=== PATIENT | female | born 1955 | race African-American/Black ===

== ENCOUNTER 2017-02-12 16:05 | Emergency (ER) | payer SELFPAY ==
[2017-02-12] MEDS ORDERED: Ketorolac 60 MG/2 ML SDV IM ONE (16:46)
--- NOTE | 2017-02-12 16:46 | EDM.PDOC ---
ED HPI GENERAL MEDICAL PROBLEM - General Chief Complaint: Lower Extremity Injury/Pain Stated Complaint: PT HURT RT FT Time Seen by Provider: 02/12/17 16:34 - History of Present Illness INITIAL COMMENTS - FREE TEXT/NARRATIVE: HISTORY AND PHYSICAL: History of present illness: The patient is a 61-year-old female with a history of hypertension and has no local provider and presents with complaints of pain to her right ankle that started about 1 week ago when she was getting out of bed and it got stuck between 2 different bed area she states that she did not fall to the ground or injure anything else and has had persistent pain to the lateral right ankle. She has been ambulating on it with a limp and she says now she also has some lower back pain. She did not fall and hit her back. She has no flank pain abdominal pain chest pain or shortness of breath and no head or neck pain. She has no proximal leg knee thigh or hip pain on the right. She has not been elevating or using ice and she has actually been using heat to the area. Review of systems: As per history of present illness and below otherwise all systems reviewed and negative. Past medical history: As per history of present illness and as reviewed below otherwise noncontributory. Surgical history: As per history of present illness and as reviewed below otherwise noncontributory. Social history: No reported history of drug or alcohol abuse. Family history: As per history of present illness and as reviewed below otherwise noncontributory. Physical exam: Gen.: Well-developed overweight female who is nontoxic and speaking clearly. Vital signs of the note by me. HEENT: Atraumatic, normocephalic, negative for conjunctival pallor or scleral icterus, mucous membranes moist, throat clear, neck supple, nontender, trachea midline. Lungs: Clear to auscultation, breath sounds equal bilaterally, chest nontender. Heart: S1S2, regular rate and rhythm no overt murmurs Abdomen: Soft, nondistended, nontender. NABS Negative for costovertebral tenderness. Pelvis: Stable nontender. Back: There are no midline step-offs tenderness defects the thoracic or lumbar spine no posterior pelvis pain. The patient indicates the entire lower lumbar area as the area of pain but there is no soft tissue injury swelling or one focal area of tenderness on palpation. Genitourinary: Deferred. Rectal: Deferred. Extremities: Atraumatic, negative for cords or calf pain. Neurovascular unremarkable. Neuro: Awake, alert, oriented. Cranial nerves II through XII unremarkable. Cerebellum unremarkable. Motor and sensory unremarkable throughout. Exam nonfocal. Diagnostics: X-ray right ankle Lumbar spine x-ray Therapeutics: Toradol Aircast Clint crutches Impression: Right ankle injury/sprain subacute, lumbar back pain Definitive disposition and diagnosis as appropriate pending reevaluation and review of above. Treatments AGENT PRODUCER: Reports: Other (see below) Other Treatments AGENT PRODUCER: Crepe Bandage right foot Pain Score (Numeric/FACES): 5 - Related Data Allergies Allergy/AdvReac Type Severity Reaction Status Date / Time No Known Allergies Allergy Verified 02/12/17 16:31 Home Meds: Home Meds Aspirin 1 tab PO DAILY 02/12/17 [History] amLODIPine [Norvasc] 10 mg PO BEDTIME 02/12/17 [History] Review of Systems - Review of Systems Review Of Systems: ROS reveals no pertinent complaints other than HPI. ED EXAM, GENERAL - Physical Exam Exam: See Below (See dictation) Course - Vital Signs Last Recorded V/S: Last Vital Signs Temp 36.6 C 02/12/17 16:32 Pulse 90 02/12/17 16:32 Resp 18 02/12/17 16:32 BP 174/88 H 02/12/17 16:32 Pulse Ox 98 02/12/17 16:32 - Orders/Labs/Meds Orders: Active Orders 24 hr Category Date Time Status Ankle Min 3V Rt [CR] Stat Exams 02/12/17 16:46 Taken Lumbar Spine 2 or 3V [CR] Stat Exams 02/12/17 16:49 Taken DME for Discharge [COMM] Stat Oth 02/12/17 18:03 Ordered Meds: Medications Discontinued Medications Generic Name Dose Route Start Last Admin Trade Name Freq PRN Reason Stop Dose Admin Ketorolac Tromethamine 60 mg 02/12/17 16:46 02/12/17 17:04 Toradol IM 02/12/17 16:47 60 mg ONETIME ONE Administration Departure - Departure Time of Disposition: 18:04 Disposition: Home, Self-Care 01 Condition: Good Clinical Impression: Ankle sprain Qualifiers: Encounter type: initial encounter Involved ligament of ankle: unspecified ligament Laterality: right Qualified Code(s): S93.401A - Sprain of unspecified ligament of right ankle, initial encounter - Discharge Information Referrals: PCP,None [Primary Care Provider] - Forms: ED Department Discharge Additional Instructions: The following information is given to patients seen in the emergency department who are being discharged to home. This information is to outline your options for follow-up care. We provide all patients seen in our emergency department with a follow-up referral. The need for follow-up, as well as the timing and circumstances, are variable depending upon the specifics of your emergency department visit. If you don't have a primary care physician on staff, we will provide you with a referral. We always advise you to contact your personal physician following an emergency department visit to inform them of the circumstance of the visit and for follow-up with them and/or the need for any referrals to a consulting specialist. The emergency department will also refer you to a specialist when appropriate. This referral assures that you have the opportunity for followup care with a specialist. All of these measure are taken in an effort to provide you with optimal care, which includes your followup. Under all circumstances we always encourage you to contact your private physician who remains a resource for coordinating your care. When calling for followup care, please make the office aware that this follow-up is from your recent emergency room visit. If for any reason you are refused follow-up, please contact the [facility] emergency department at and ask to speak to the emergency department charge nurse. [facility] Specialty Care--Orthopedic clinic Professional Building [address] [place] [address] [id number] [facility] Primary care- Internal Medicine and Family [place] [id number] [place] [phone] Ice and elevate as much as possible and use the Aircast and Clint wrap been given and the crutches for the next 5 days. Use medications as prescribed and needed. Please call and follow-up in primary care for basic medical reevaluation and our orthopedic clinic this week for further care of the ankle. Return to ER as needed and as discussed - My Orders Last 24 Hours: My Active Orders 02/12/17 16:46 Ankle Min 3V Rt [CR] Stat 02/12/17 16:49 Lumbar Spine 2 or 3V [CR] Stat 02/12/17 18:03 DME for Discharge [COMM] Stat - Assessment/Plan Last 24 Hours: My Active Orders 02/12/17 16:46 Ankle Min 3V Rt [CR] Stat 02/12/17 16:49 Lumbar Spine 2 or 3V [CR] Stat 02/12/17 18:03 DME for Discharge [COMM] Stat
[2017-02-12 19:24] VITALS: BP 138/77
--- NOTE | 2017-02-14 10:47 | CR ---
EXAM DATE: 02/12/17 PATIENT'S AGE: 61 Patient: MARLA RUDD Facility: [place], [place] Site . Site : 1955 Study: XRay Spine Lumbar [id number]/7/2017 5:37:00 PM Ordering Physician: Jeb Crouch Final Report: INDICATION: Pain. Technique: Three upright views of the lumbar spine. Findings: Five lumbar type vertebral bodies. Vertebral bodies are normal in height and alignment. Pedicles, transverse processes, and spinous processes are intact. Disc spaces are maintained. Small anterior osteophytes L3 and L4. Impression: 1. No acute abnormality. 2. Small anterior osteophytes L3 and L4. Dictated by Lito Cragi MD @ Feb 12 2017 5:44PM (Electronic Signature) Report Signed by Proxy. STEVAN
--- NOTE | 2017-02-14 10:48 | CR ---
EXAM DATE: 02/12/17 PATIENT'S AGE: 61 Patient: MARLA RUDD Facility: [place], [place] Site . Site : 1955 Study: XRay Extremity Right ankle [id number]/7/2017 5:37:26 PM Ordering Physician: Jeb Crouch Final Report: INDICATION: Pain. Technique: Three views of the right ankle. Findings: No acute fracture or dislocation. The mortise is uniform. Soft tissue swelling about the lateral malleolus. Plantar calcaneal spur and calcification at the Achilles tendon insertion site. Impression: 1. No acute bony abnormality. 2. Lateral soft tissue swelling. Dictated by Lito Craig MD @ Feb 12 2017 5:45PM (Electronic Signature) Report Signed by Proxy. STEVAN
== END 2017-02-12 18:13 | disposition home or self-care (01) ==
LOC: MW.ED 16:05
DX: S93.401A Sprain of unspecified ligament of right ankle, initial encounter (principal); Z79.82 Long term (current) use of aspirin; X58.XXXA Exposure to other specified factors, initial encounter
CPT/HCPCS: 72100; 73610; 96372; 99283; J1885

== ENCOUNTER 2017-04-18 16:15 | Emergency (ER) | payer SELFPAY ==
[2017-04-18 16:42] VITALS: BP 143/76
[2017-04-18] MEDS ORDERED: traMADol 50 MG Tab PO ONE (17:18)
--- NOTE | 2017-04-18 17:24 | EDM.PDOC ---
ED HPI GENERAL MEDICAL PROBLEM - General Chief Complaint: Upper Extremity Injury/Pain Stated Complaint: PAIN LT SHOULDER Time Seen by Provider: 04/18/17 17:15 Source of Information: Reports: Patient History Limitations: Reports: No Limitations - History of Present Illness INITIAL COMMENTS - FREE TEXT/NARRATIVE: History of present illness: []She has chronic left shoulder joint pain. She had the same pain in February and was seen in the emergency room at that time. She had an x-ray that was negative and states that she has had no new trauma and it is the same pain. Review of systems: As per history of present illness and below otherwise all systems reviewed and negative. Past medical history: As per history of present illness and as reviewed below otherwise noncontributory. Surgical history: As per history of present illness and as reviewed below otherwise noncontributory. Social history: No reported history of drug or alcohol abuse. Family history: As per history of present illness and as reviewed below otherwise noncontributory. Physical exam: General: Well developed, well nourished in NAD HEENT: Atraumatic, normocephalic, pupils reactive, negative for conjunctival pallor or scleral icterus, mucous membranes moist, throat clear, neck supple, nontender, trachea midline. Lungs: Clear to auscultation, breath sounds equal bilaterally, chest nontender. Heart: S1S2, regular, negative for clicks, rubs, or JVD. Abdomen: Soft, nondistended, nontender. Negative for masses or hepatosplenomegaly. Negative for costovertebral tenderness. Pelvis: Stable nontender. Genitourinary: Deferred. Rectal: Deferred. Extremities: Atraumatic, negative for cords or calf pain. Neurovascular unremarkable. Neuro: Awake, alert, oriented. Cranial nerves II through XII unremarkable. Cerebellum unremarkable. Motor and sensory unremarkable throughout. Exam nonfocal. Diagnostics: [] Therapeutics: []Arm sling, tramadol Impression: []Left shoulder pain Plan: []Tramadol, ibuprofen, where arm sling for comfort, ice shoulder 20 minutes at a time follow-up with Definitive disposition and diagnosis as appropriate pending reevaluation and review of above. right shoulder Pain Score (Numeric/FACES): 9 - Related Data Allergies Allergy/AdvReac Type Severity Reaction Status Date / Time No Known Allergies Allergy Verified 04/18/17 16:39 Home Meds: Home Meds Aspirin 1 tab PO DAILY 02/12/17 [History] amLODIPine [Norvasc] 10 mg PO BEDTIME 02/12/17 [History] traMADol [Ultram] 50 mg PO Q8H PRN #16 tablet 04/18/17 [Rx] Past Medical History - Past Health History Medical/Surgical History: Denies Medical/Surgical History HEENT History: Reports: None Cardiovascular History: Reports: Hypertension Respiratory History: Reports: None Gastrointestinal History: Reports: None Genitourinary History: Reports: None 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: Musculoskeletal History: Reports: None Neurological History: Reports: None Endocrine/Metabolic History: Reports: None Hematologic History: Reports: None Immunologic History: Reports: None Oncologic (Cancer) History: Reports: None Dermatologic History: Reports: None - Infectious Disease History Infectious Disease History: Reports: None Social & Family History - Family History Family Medical History: Noncontributory - Tobacco Use Smoking Status *Q: Never Smoker - Caffeine Use Caffeine Use: Reports: Coffee - Recreational Drug Use Recreational Drug Use: No Review of Systems - Review of Systems Review Of Systems: See Below (See history of present illness) ED EXAM, GENERAL - Physical Exam Exam: See Below (See history of present illness) Course - Vital Signs Last Recorded V/S: Last Vital Signs Temp 97 F 04/18/17 16:30 Pulse 72 04/18/17 16:30 Resp 18 04/18/17 16:30 BP 143/76 H 04/18/17 16:30 Pulse Ox 99 04/18/17 16:30 - Orders/Labs/Meds Orders: Active Orders 24 hr Category Date Time Status Communication Order [RC] STAT Care 04/18/17 17:18 Active Meds: Medications Discontinued Medications Generic Name Dose Route Start Last Admin Trade Name Freq PRN Reason Stop Dose Admin Tramadol HCl 50 mg 04/18/17 17:18 Ultram PO 04/18/17 17:19 ONETIME ONE Departure - Departure Time of Disposition: 17:25 Disposition: Home, Self-Care 01 Condition: Good Clinical Impression: Chronic right shoulder pain - Discharge Information Prescriptions: traMADol [Ultram] 50 mg PO Q8H PRN #16 tablet PRN Reason: Pain Referrals: PCP,None [Primary Care Provider] - Forms: ED Department Discharge Additional Instructions: The following information is given to patients seen in the emergency department who are being discharged to home. This information is to outline your options for follow-up care. We provide all patients seen in our emergency department with a follow-up referral. The need for follow-up, as well as the timing and circumstances, are variable depending upon the specifics of your emergency department visit. If you don't have a primary care physician on staff, we will provide you with a referral. We always advise you to contact your personal physician following an emergency department visit to inform them of the circumstance of the visit and for follow-up with them and/or the need for any referrals to a consulting specialist. The emergency department will also refer you to a specialist when appropriate. This referral assures that you have the opportunity for follow-up care with a specialist. All of these measure are taken in an effort to provide you with optimal care, which includes your follow-up. Under all circumstances we always encourage you to contact your private physician who remains a resource for coordinating your care. When calling for follow-up care, please make the office aware that this follow-up is from your recent emergency room visit. If for any reason you are refused follow-up, please contact the [facility] Emergency Department at and asked to speak to the emergency department charge nurse. Ice shoulder 20 minutes this time, Motrin and tramadol for pain follow-up with your primary care physician. Call for an appointment [facility] [address] [place] [id number] - My Orders Last 24 Hours: My Active Orders 04/18/17 17:18 Communication Order [RC] STAT - Assessment/Plan Last 24 Hours: My Active Orders 04/18/17 17:18 Communication Order [RC] STAT
== END 2017-04-18 17:49 | disposition home or self-care (01) ==
LOC: MW.ED 16:15
DX: M25.512 Pain in left shoulder (principal); G89.29 Other chronic pain; I10 Essential (primary) hypertension
CPT/HCPCS: 99282; A9270; 99283

== ENCOUNTER 2017-12-19 15:13 | Emergency (ER) | payer OTHER ==
[2017-12-19 15:59] VITALS: BP 156/90
--- NOTE | 2017-12-19 16:27 | EDM.PDOC ---
ED HPI GENERAL MEDICAL PROBLEM - General Chief Complaint: Eye Problems Stated Complaint: HBP Time Seen by Provider: 12/19/17 16:24 Source of Information: Reports: Patient - History of Present Illness INITIAL COMMENTS - FREE TEXT/NARRATIVE: HISTORY AND PHYSICAL: History of present illness: []Patient presents with injected sclera light sensitivity she has been taking some drops for eyes neomycin polymyxin B she had from previous as she has had some exudate in her lashes on awakening She has a histor hypertension she is out of her medication Otherwise no other complaints no fever nausea vomiting diarrhea constipation chest pain shortness breath headache dizziness palpitation no bowel or urine symptoms Review of systems: As per history of present illness and below otherwise all systems reviewed and negative. Past medical history: As per history of present illness and as reviewed below otherwise noncontributory. Surgical history: As per history of present illness and as reviewed below otherwise noncontributory. Social history: No reported history of drug or alcohol abuse. Family history: As per history of present illness and as reviewed below otherwise noncontributory. Physical exam: HEENT: Atraumatic, normocephalic, pupils reactive, negative for conjunctival pallor or scleral icterus, mucous membranes moist, throat clear, neck supple, nontender, trachea midline. Lungs: Clear to auscultation, breath sounds equal bilaterally, chest nontender. Heart: S1S2, regular, negative for clicks, rubs, or JVD. Abdomen: Soft, nondistended, nontender. Negative for masses or hepatosplenomegaly. Negative for costovertebral tenderness. Pelvis: Stable nontender. Genitourinary: Deferred. Rectal: Deferred. Extremities: Atraumatic, negative for cords or calf pain. Neurovascular unremarkable. Neuro: Awake, alert, oriented. Cranial nerves II through XII unremarkable. Cerebellum unremarkable. Motor and sensory unremarkable throughout. Exam nonfocal. Diagnostics: [Clinical ] Therapeutics: [ in 2 Drops as directed Amlodipine 10 mg by mouth daily #30 no refill Establish primary Recommend ophthalmology exam ] Impression: [ hypertension Conjunctivitis ] Definitive disposition and diagnosis as appropriate pending reevaluation and review of above. both eyes Pain Score (Numeric/FACES): 7 - Related Data Allergies Allergy/AdvReac Type Severity Reaction Status Date / Time No Known Allergies Allergy Verified 12/19/17 15:42 Home Meds: Home Meds amLODIPine [Norvasc] 10 mg PO BEDTIME 02/12/17 [History] Vasquez/Polymyx B Sulf/Dexameth [Maxitrol Eye Drops] 1 drop EYEBOTH ASDIRECTED PRN 12/19/17 [History] Past Medical History - Past Health History Medical/Surgical History: Denies Medical/Surgical History HEENT History: Reports: None Cardiovascular History: Reports: Hypertension Respiratory History: Reports: None Gastrointestinal History: Reports: None Genitourinary History: Reports: None 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: Musculoskeletal History: Reports: None Neurological History: Reports: None Psychiatric History: Reports: None Endocrine/Metabolic History: Reports: None Hematologic History: Reports: None Immunologic History: Reports: None Oncologic (Cancer) History: Reports: None Dermatologic History: Reports: None - Infectious Disease History Infectious Disease History: Reports: None - Past Surgical History Head Surgeries/Procedures: Reports: None HEENT Surgical History: Reports: None Cardiovascular Surgical History: Reports: None Respiratory Surgical History: Reports: None GI Surgical History: Reports: None Female Surgical History: Reports: None Oncologic Surgical History: Reports: None Social & Family History - Family History Family Medical History: Noncontributory - Tobacco Use Smoking Status *Q: Never Smoker Second Hand Smoke Exposure: No - Caffeine Use Caffeine Use: Reports: None - Recreational Drug Use Recreational Drug Use: No ED ROS GENERAL - Review of Systems Review Of Systems: See Below ED EXAM GENERAL W FULL EYE - Physical Exam Exam: See Below Course - Vital Signs Last Recorded V/S: Last Vital Signs Temp 98.6 F 12/19/17 15:45 Pulse 90 12/19/17 15:45 Resp 16 12/19/17 15:45 BP 156/90 H 12/19/17 15:59 Pulse Ox 98 12/19/17 15:45 Departure - Departure Time of Disposition: 16:26 Disposition: Home, Self-Care 01 Condition: Good Clinical Impression: Conjunctivitis, Hypertension - Discharge Information Referrals: PCP,None [Primary Care Provider] - Additional Instructions: Medication as prescribed Return if symptoms persist or worsen Follow-up and establish primary care physician Recommend ophthalmology examination call phone number below to schedule appropriate follow-up with ophthalmology [address] [id number] The following information is given to patients seen in the emergency department who are being discharged to home. This information is to outline your options for follow-up care. We provide all patients seen in our emergency department with a follow-up referral. The need for follow-up, as well as the timing and circumstances, are variable depending upon the specifics of your emergency department visit. If you don't have a primary care physician on staff, we will provide you with a referral. We always advise you to contact your personal physician following an emergency department visit to inform them of the circumstance of the visit and for follow-up with them and/or the need for any referrals to a consulting specialist. The emergency department will also refer you to a specialist when appropriate. This referral assures that you have the opportunity for follow-up care with a specialist. All of these measure are taken in an effort to provide you with optimal care, which includes your follow-up. Under all circumstances we always encourage you to contact your private physician who remains a resource for coordinating your care. When calling for follow-up care, please make the office aware that this follow-up is from your recent emergency room visit. If for any reason you are refused follow-up, please contact the [facility] emergency department at and asked to speak to the emergency department charge nurse.
== END 2017-12-19 17:00 | disposition home or self-care (01) ==
LOC: MW.ED 15:13
DX: I10 Essential (primary) hypertension (principal); H10.9 Unspecified conjunctivitis
CPT/HCPCS: 99283

== ENCOUNTER 2018-11-27 13:10 | Emergency (ER) | payer SELFPAY ==
--- NOTE | 2018-11-27 13:37 | EDM.PDOC ---
ED HPI GENERAL MEDICAL PROBLEM - General Chief Complaint: General Stated Complaint: SICK Time Seen by Provider: 11/27/18 13:30 - History of Present Illness INITIAL COMMENTS - FREE TEXT/NARRATIVE: HISTORY AND PHYSICAL: History of present illness: Patient's a 63-year-old Afro-[place]ib[place]ian female history of hypertension and non- insulin-dependent diabetes who presents with a concern of medical screening exam she has had some revision nonspecific symptoms in the form of having felt chilled and is here with her son without primary care locally for medical screening evaluation and clinic referral. No reported chest pain shortness of breath nausea vomiting fever Review of systems: As per history of present illness and below otherwise all systems reviewed and negative. Past medical history: As per history of present illness and as reviewed below otherwise noncontributory. Surgical history: As per history of present illness and as reviewed below otherwise noncontributory. Social history: No reported history of drug or alcohol abuse. Family history: As per history of present illness and as reviewed below otherwise noncontributory. Physical exam: HEENT: Atraumatic, normocephalic, pupils reactive, negative for conjunctival pallor or scleral icterus, mucous membranes moist, throat clear, neck supple, nontender, trachea midline. Lungs: Clear to auscultation, breath sounds equal bilaterally, chest nontender. Heart: S1S2, regular, negative for clicks, rubs, or JVD. Abdomen: Soft, nondistended, nontender. Negative for masses or hepatosplenomegaly. Negative for costovertebral tenderness. Pelvis: Stable nontender. Genitourinary: Deferred. Rectal: Deferred. Extremities: Atraumatic, negative for cords or calf pain. Neurovascular unremarkable. Neuro: Awake, alert, oriented. Cranial nerves II through XII unremarkable. Cerebellum unremarkable. Motor and sensory unremarkable throughout. Exam nonfocal. Diagnostics: CBC CMP UA chest x-ray EKG Therapeutics: None Impression: #1 medical screening exam #2 history of diabetes #3 history of hypertension Definitive disposition and diagnosis as appropriate pending reevaluation and review of above. Generalized Pain Score (Numeric/FACES): 9 - Related Data Allergies Allergy/AdvReac Type Severity Reaction Status Date / Time No Known Allergies Allergy Verified 11/27/18 13:34 Home Meds: Home Meds amLODIPine [Norvasc] 10 mg PO BEDTIME 02/12/17 [History] Vasquez/Polymyx B Sulf/Dexameth [Maxitrol Eye Drops] 1 drop EYEBOTH ASDIRECTED PRN 12/19/17 [History] Aspirin [Ecotrin EC] mg PO ASDIRECTED 11/27/18 [History] Past Medical History - Past Health History Medical/Surgical History: Denies Medical/Surgical History HEENT History: Reports: None Cardiovascular History: Reports: Hypertension Respiratory History: Reports: None Gastrointestinal History: Reports: None Genitourinary History: Reports: None 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: Musculoskeletal History: Reports: None Neurological History: Reports: None Psychiatric History: Reports: None Endocrine/Metabolic History: Reports: None Hematologic History: Reports: None Immunologic History: Reports: None Oncologic (Cancer) History: Reports: None Dermatologic History: Reports: None - Infectious Disease History Infectious Disease History: Reports: None - Past Surgical History Head Surgeries/Procedures: Reports: None HEENT Surgical History: Reports: None Cardiovascular Surgical History: Reports: None Respiratory Surgical History: Reports: None GI Surgical History: Reports: None Female Surgical History: Reports: None Oncologic Surgical History: Reports: None Social & Family History - Family History Family Medical History: Noncontributory - Caffeine Use Caffeine Use: Reports: None ED ROS GENERAL - Review of Systems Review Of Systems: ROS reveals no pertinent complaints other than HPI. ED EXAM, GENERAL - Physical Exam Exam: See Below (See dictation) Course - Vital Signs Last Recorded V/S: Last Vital Signs Temp 35.9 C 11/27/18 13:30 Pulse 82 11/27/18 13:30 Resp 16 11/27/18 13:30 BP 177/75 H 11/27/18 13:30 Pulse Ox 99 11/27/18 13:30 - Orders/Labs/Meds Orders: Active Orders 24 hr Category Date Time Status EKG Documentation Completion [RC] STAT Care 11/27/18 13:33 Active UA RFX MOISES AND CULT IF INDIC [URIN] Stat Lab 11/27/18 13:34 Ordered Labs: Laboratory Tests 11/27/18 11/27/18 Range/Units 14:24 14:24 WBC 7.39 (4.0-11.0) K/uL RBC 4.91 (4.30-5.90) M/uL Hgb 13.4 (12.0-16.0) g/dL Hct 40.0 (36.0-46.0) % MCV 81.5 (80.0-98.0) fL MCH 27.3 (27.0-32.0) pg MCHC 33.5 (31.0-37.0) g/dL RDW Std Deviation 40.2 (28.0-62.0) fl RDW Coeff of Maria Ines 14 (11.0-15.0) % Plt Count 225 (150-400) K/uL MPV 9.70 (7.40-12.00) fL Neut % (Auto) 60.3 (48.0-80.0) % Lymph % (Auto) 32.6 (16.0-40.0) % [place] % (Auto) 6.8 (0.0-15.0) % Eos % (Auto) 0.0 (0.0-7.0) % Baso % (Auto) 0.3 (0.0-1.5) % Neut # (Auto) 4.5 (1.4-5.7) K/uL Lymph # (Auto) 2.4 (0.6-2.4) K/uL [place] # (Auto) 0.5 (0.0-0.8) K/uL Eos # (Auto) 0.0 (0.0-0.7) K/uL Baso # (Auto) 0.0 (0.0-0.1) K/uL Nucleated RBC % 0.0 /100WBC Nucleated RBCs # 0 K/uL Sodium 138 (136-145) mmol/L Potassium 3.1 L (3.5-5.1) mmol/L Chloride 100 (98-107) mmol/L Carbon Dioxide 28.3 (21.0-32.0) mmol/L BUN 23 H (7.0-18.0) mg/dL Creatinine 0.9 (0.6-1.0) mg/dL Est Cr Clr Drug Dosing 63.83 mL/min Estimated GFR (MDRD) > 60.0 ml/min Glucose 372 H (74-106) mg/dL Calcium 9.0 (8.5-10.1) mg/dL Total Bilirubin 0.4 (0.2-1.0) mg/dL AST 14 L (15-37) IU/L ALT 25 (14-63) IU/L Alkaline Phosphatase 61 (46-116) U/L Total Protein 8.0 (6.4-8.2) g/dL Albumin 3.7 (3.4-5.0) g/dL Globulin 4.3 H (2.6-4.0) g/dL Albumin/Globulin Ratio 0.9 (0.9-1.6) Departure - Departure Time of Disposition: 14:57 Disposition: Home, Self-Care 01 Condition: Good Clinical Impression: Encounter for medical screening examination, Diabetes, History of hypertension - Discharge Information Referrals: PCP,Unknown [Primary Care Provider] - Forms: ED Department Discharge Additional Instructions: The following information is given to patients seen in the emergency department who are being discharged to home. This information is to outline your options for follow-up care. We provide all patients seen in our emergency department with a follow-up referral. The need for follow-up, as well as the timing and circumstances, are variable depending upon the specifics of your emergency department visit. If you don't have a primary care physician on staff, we will provide you with a referral. We always advise you to contact your personal physician following an emergency department visit to inform them of the circumstance of the visit and for follow-up with them and/or the need for any referrals to a consulting specialist. The emergency department will also refer you to a specialist when appropriate. This referral assures that you have the opportunity for followup care with a specialist. All of these measure are taken in an effort to provide you with optimal care, which includes your followup. Under all circumstances we always encourage you to contact your private physician who remains a resource for coordinating your care. When calling for followup care, please make the office aware that this follow-up is from your recent emergency room visit. If for any reason you are refused follow-up, please contact the [facility] emergency department at and asked to speak to the emergency department charge nurse. [facility] [address] [place] [id number] Follow-up primary care call to schedule appointment continue current medications and return as needed as discussed - My Orders Last 24 Hours: My Active Orders 11/27/18 13:33 EKG Documentation Completion [RC] STAT 11/27/18 13:34 UA RFX MOISES AND CULT IF INDIC [URIN] Stat - Assessment/Plan Last 24 Hours: My Active Orders 11/27/18 13:33 EKG Documentation Completion [RC] STAT 11/27/18 13:34 UA RFX MOISES AND CULT IF INDIC [URIN] Stat
--- NOTE | 2018-11-27 14:37 | CR ---
EXAMINATION: Portable chest radiograph. HISTORY: Shortness of breath. FINDINGS: The trachea is midline. The cardiomediastinal silhouette is within normal limits. No pulmonary infiltrates, effusions or pneumothorax. Osseous structures appear unremarkable. IMPRESSION: No acute cardiopulmonary process.
[2018-11-27 14:49] LABS: CHLORIDE,CL 100 mmol/L (98-107); SODIUM,NA 138 mmol/L (136-145)
[2018-11-27 19:47] VITALS: BP 159/82
== END 2018-11-27 15:26 | disposition home or self-care (01) ==
LOC: MW.ED 13:10
DX: E11.9 Type 2 diabetes mellitus without complications (principal); I10 Essential (primary) hypertension; Z79.82 Long term (current) use of aspirin
CPT/HCPCS: 36415; 71045; 71045-26; 80053; 81003; 85025; 93005; 99284-25

== ENCOUNTER 2019-08-03 16:42 | Emergency (ER) | payer SELFPAY ==
[2019-08-03] MEDS ORDERED: Tetracaine HCl/PF 0.5% 4 ML Bottle EYEBOTH ONE (18:14)
--- NOTE | 2019-08-03 18:20 | EDM.PDOC ---
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 Patient states that she has had this issue in the past but has never had this evaluated by an eye doctor but was in the ED for this prior with improvement of symptoms and her symptoms today are similar to when she was in the ED in the past. Patient states starting 2 days ago she had some eye pain, redness, crusting and photophobia. Patient denies any associated symptoms with this and denies any visual changes. Patient states she does have blurry vision at her baseline which is unchanged which she has not had evaluated. Patient denies any other symptoms or concerns. Patient has a history of uncontrolled hypertension and diabetes. Does not wear contacts or glasses. Patient denies fever, chills, chest pain, shortness of breath, or cough. Denies headache, neck stiff ness, change in vision, syncope, or near syncope. Denies nausea, vomiting, abdominal pain, diarrhea, constipation, or dysuria. Has not noted any blood in urine or stool. Patient has been eating and drinking appropriately. Review of systems: As per history of present illness and below otherwise all systems reviewed and negative. Past medical history: As per history of present illness and as reviewed below otherwise noncontributory. Surgical history: As per history of present illness and as reviewed below otherwise noncontributory. Social history: See social history for further information Family history: As per history of present illness and as reviewed below otherwise noncontributory. Physical exam: General: Patient is alert, oriented, and in no acute distress. Patient sitting comfortably on exam table. HEENT: Visual acuity intact but vision decreased. Tonopen pressure of right eye 18. Tonopen pressure of left eye 17. Mild injection of sclera bilaterally. EOMS intact without pain or difficulty. Direct and consensual light without pain. Florescence stain performed without evidence of corneal abrasion/ulceration. Bilateral upper and lower lids everted without sign of foreign body. Negative for corneal opacity, hyphema, or hypopyon but does have pterygium of bilateral eyes. Otherwise, atraumatic, normocephalic, pupils equal and reactive bilaterally, negative for conjunctival pallor or scleral icterus, mucous membranes moist, TMs normal bilaterally, throat clear, neck supple, nontender, trachea midline. No drooling or trismus noted. No meningeal signs. No hot potato voice noted. Lungs: Clear to auscultation, breath sounds equal bilaterally, chest nontender. Heart: S1S2, regular rate and rhythm without overt murmur Abdomen: Soft, nondistended, nontender. Negative for masses or hepatosplenomegaly. Negative for costovertebral tenderness. Pelvis: Stable nontender. Genitourinary: Deferred. Rectal: Deferred. Skin: Intact, warm, dry. No lesions or rashes noted. Extremities: Atraumatic, negative for cords or calf pain. Neurovascular unremarkable. Neuro: Awake, alert, oriented. Cranial nerves II through XII unremarkable. Cerebellum unremarkable. Motor and sensory unremarkable throughout. Exam nonfocal. Notes: Evaluation of her blood pressure was offered but patient declines. All risks vs benefits discussed with patient and expresses understanding. However, I do think that patients hypertension is chronic as her last visits in the ED were also 170s over 100s. Discussed importance for follow-up with the ambulance paramedic and establishing care with primary care. Voices understanding and is agreeable to plan of care. Denies any further questions or concerns at this time. Diagnostics: Fluorescence stain, tonopen Therapeutics: Tetracaine Prescription: Polytrim ophthalmic drops Impression: Conjunctivitis, bilateral Hypertension Plan: 1. You can alternate ibuprofen and Tylenol as directed for pain and discomfort. 2. Follow-up with the ambulance paramedic as discussed and establish care with a primary care provider. The number has been provided above for you to call and establish an appointment time. 3. Return to the ED as needed and as discussed. Definitive disposition and diagnosis as appropriate pending reevaluation and review of above. bilateral eye Pain Score (Numeric/FACES): 5 - Related Data Allergies Allergy/AdvReac Type Severity Reaction Status Date / Time No Known Allergies Allergy Verified 08/03/19 17:59 Home Meds: Home Meds amLODIPine [Norvasc] 2.5 mg PO DAILY 02/12/17 [History] Metoprolol Succinate [[place]sp[place] Sprinkle] 25 mg PO DAILY 08/03/19 [History] Polymyxin B/Trimethoprim [PolyTrim Ophth Soln] 1 drop EYEBOTH Q3HR 5 Days #1 bottle 08/03/19 [Rx] Rosuvastatin [Crestor] 10 mg PO BEDTIME 08/03/19 [History] lisinopriL [Lisinopril] 10 mg PO DAILY 08/03/19 [History] metFORMIN [Glucophage XR] 1,000 mg PO BID 08/03/19 [History] Past Medical History - Past Health History Medical/Surgical History: Denies Medical/Surgical History HEENT History: Reports: None Cardiovascular History: Reports: Hypertension Respiratory History: Reports: None Gastrointestinal History: Reports: None Genitourinary History: Reports: None 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: Musculoskeletal History: Reports: None Neurological History: Reports: None Psychiatric History: Reports: None Endocrine/Metabolic History: Reports: Diabetes, Type II Hematologic History: Reports: None Immunologic History: Reports: None Oncologic (Cancer) History: Reports: None Dermatologic History: Reports: None - Infectious Disease History Infectious Disease History: Reports: None - Past Surgical History Head Surgeries/Procedures: Reports: None HEENT Surgical History: Reports: None Cardiovascular Surgical History: Reports: None Respiratory Surgical History: Reports: None GI Surgical History: Reports: None Female Surgical History: Reports: None Endocrine Surgical History: Reports: None Oncologic Surgical History: Reports: None Social & Family History - Family History Family Medical History: Noncontributory - Tobacco Use Smoking Status *Q: Never Smoker Second Hand Smoke Exposure: No - Caffeine Use Caffeine Use: Reports: None - Recreational Drug Use Recreational Drug Use: No ED ROS GENERAL - Review of Systems Review Of Systems: Comprehensive ROS is negative, except as noted in HPI. ED EXAM GENERAL W FULL EYE - Physical Exam Exam: See Below (see dictation) Course - Vital Signs Last Recorded V/S: Last Vital Signs Temp 96.5 F L 08/03/19 18:28 Pulse 77 08/03/19 18:28 Resp 18 08/03/19 18:28 BP 170/93 H 08/03/19 18:28 Pulse Ox 99 08/03/19 18:28 - Orders/Labs/Meds Labs: Laboratory Tests 08/03/19 Range/Units 17:45 POC Glucose 75 (60-110) mg/dL Meds: Medications Discontinued Medications Generic Name Dose Route Start Last Admin Trade Name Larry PRN Reason Stop Dose Admin Tetracaine HCl 2 ml 08/03/19 18:14 08/03/19 18:38 Tetracaine 0.5% Steri-Unit Jackie EYEBOTH 08/03/19 18:15 1 dose ASDIRECTED ONE Administration Departure - Departure Time of Disposition: 18:58 Disposition: Home, Self-Care 01 Clinical Impression: Conjunctivitis Qualifiers: Conjunctivitis type: unspecified Laterality: bilateral Qualified Code(s): H10.9 - Unspecified conjunctivitis Hypertension Qualifiers: Hypertension type: unspecified Qualified Code(s): I10 - Essential (primary) hypertension - Discharge Information Prescriptions: Polymyxin B/Trimethoprim [PolyTrim Ophth Soln] 1 drop EYEBOTH Q3HR 5 Days #1 bottle Referrals: Tammi Fernandez [Primary Care Provider] - Forms: ED Department Discharge Additional Instructions: The following information is given to patients seen in the emergency department who are being discharged to home. This information is to outline your options for follow-up care. We provide all patients seen in our emergency department with a follow-up referral. The need for follow-up, as well as the timing and circumstances, are variable depending upon the specifics of your emergency department visit. If you don't have a primary care physician on staff, we will provide you with a referral. We always advise you to contact your personal physician following an emergency department visit to inform them of the circumstance of the visit and for follow-up with them and/or the need for any referrals to a consulting specialist. The emergency department will also refer you to a specialist when appropriate. This referral assures that you have the opportunity for follow-up care with a specialist. All of these measure are taken in an effort to provide you with optimal care, which includes your follow-up. Under all circumstances we always encourage you to contact your private physician who remains a resource for coordinating your care. When calling for follow-up care, please make the office aware that this follow-up is from your recent emergency room visit. If for any reason you are refused follow-up, please contact the [facility] Emergency Department at and asked to speak to the emergency department charge nurse. [facility] [address] [place] [address] [facility], Ophthalmology [address] [place] [address] 1. You can alternate ibuprofen and Tylenol as directed for pain and discomfort. Take medication as prescribed. 2. Follow-up with the ambulance paramedic as discussed and establish care with a primary care provider. The number has been provided above for you to call and establish an appointment time. 3. Return to the ED as needed and as discussed. Sepsis Event Note - Evaluation Sepsis Screening Result: No Definite Risk - Focused Exam Vital Signs: Vital Signs Temp Pulse Resp BP Pulse Ox 08/03/19 18:28 96.5 F L 77 18 170/93 H 99 08/03/19 17:20 97.1 F 82 20 183/99 H 99 Date Exam was Performed: 08/03/19 Time Exam was Performed: 18:53
[2019-08-03 18:28] VITALS: PULSE 77
[2019-08-03 19:50] VITALS: BP 177/93
== END 2019-08-03 19:24 | disposition home or self-care (01) ==
LOC: MW.ED 16:42
DX: H10.9 Unspecified conjunctivitis (principal); I10 Essential (primary) hypertension; E11.9 Type 2 diabetes mellitus without complications; Z79.84 Long term (current) use of oral hypoglycemic drugs; Z79.899 Other long term (current) drug therapy
CPT/HCPCS: 82962; 99283

== ENCOUNTER 2019-08-09 16:51 | Emergency (ER) | payer SELFPAY ==
--- NOTE | 2019-08-09 18:23 | EDM.PDOC ---
ED HPI GENERAL MEDICAL PROBLEM - General Chief Complaint: Eye Problems Stated Complaint: eye problem Time Seen by Provider: 08/09/19 16:52 Source of Information: Reports: Patient, [employer] History Limitations: Reports: Language Barrier - History of Present Illness INITIAL COMMENTS - FREE TEXT/NARRATIVE: This 63 year female is admitted to the ED with a chief complaint of painful red eyes for about 6-7 days. She was seen in the ED on August 03, 2019 with the same complaint including photophobia and crusting of both eyes. She was placed on polymyxin. The patient states that she has blurry vision at her baseline and has not seen the eye doctor for evaluation of it yet. All of our communication was through an director of cardiology. She is here because her eyes are still painful. Onset: Gradual Eyes Pain Score (Numeric/FACES): 5 - Related Data Allergies Allergy/AdvReac Type Severity Reaction Status Date / Time No Known Allergies Allergy Verified 08/09/19 17:39 Home Meds: Home Meds amLODIPine [Norvasc] 2.5 mg PO DAILY 02/12/17 [History] Metoprolol Succinate [K[place]sp[place] Sprinkle] 25 mg PO DAILY 08/03/19 [History] Polymyxin B/Trimethoprim [PolyTrim Ophth Soln] 1 drop EYEBOTH Q3HR 5 Days #1 bottle 08/03/19 [Rx] Rosuvastatin [Crestor] 10 mg PO BEDTIME 08/03/19 [History] lisinopriL [Lisinopril] 10 mg PO DAILY 08/03/19 [History] metFORMIN [Glucophage XR] 1,000 mg PO BID 08/03/19 [History] Past Medical History - Past Health History Medical/Surgical History: Denies Medical/Surgical History HEENT History: Reports: None Cardiovascular History: Reports: Hypertension Respiratory History: Reports: None Gastrointestinal History: Reports: None Genitourinary History: Reports: None 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: Musculoskeletal History: Reports: None Neurological History: Reports: None Psychiatric History: Reports: None Endocrine/Metabolic History: Reports: Diabetes, Type II Hematologic History: Reports: None Immunologic History: Reports: None Oncologic (Cancer) History: Reports: None Dermatologic History: Reports: None - Infectious Disease History Infectious Disease History: Reports: None - Past Surgical History Head Surgeries/Procedures: Reports: None HEENT Surgical History: Reports: None Cardiovascular Surgical History: Reports: None Respiratory Surgical History: Reports: None GI Surgical History: Reports: None Female Surgical History: Reports: None Endocrine Surgical History: Reports: None Oncologic Surgical History: Reports: None Social & Family History - Family History Family Medical History: Noncontributory - Tobacco Use Smoking Status *Q: Never Smoker - Caffeine Use Caffeine Use: Reports: None - Recreational Drug Use Recreational Drug Use: No ED ROS GENERAL - Review of Systems Review Of Systems: See Below Constitutional: Reports: No Symptoms HEENT: Reports: No Symptoms Respiratory: Reports: No Symptoms Cardiovascular: Reports: No Symptoms Endocrine: Reports: No Symptoms GI/Abdominal: Reports: No Symptoms : Reports: No Symptoms Musculoskeletal: Reports: No Symptoms Skin: Reports: No Symptoms Neurological: Reports: No Symptoms ED EXAM GENERAL W FULL EYE - Physical Exam Exam: See Below Exam Limited By: Language Barrier General Appearance: Alert, WD/WN, Other (No acute distress complaining of pain in both eyes.) Eye Exam: Bilateral Eye: Conjunctival Injection (slightly injected), EOMI, PERRL , Vision Changes (blurred but has not changed from her baseline.) Visual Acuity (R) 20/: 100 Visual Acuity (L) 20/: 100 With Correction: No IOP (R) in mmH IOP (L) in mmH IOP Measure with (Equipment): [employer]open Eyelids: Bilateral: Normal Appearance Conjunctiva & Sclera: Bilateral: Injected (slightly injected) Cornea Exam: Bilateral: Normal Appearance Extraocular Movements: Bilateral: Intact Pupils: Normal Accommodation Pupillary Size: Bilateral: 3 mm Pupillary Reaction: Bilateral: Brisk Anterior Chamber: Bilateral: Other (unable to evaluate) Posterior Chamber: Bilateral: Other (unable to evaluate) Ears: Normal External Exam, Normal Canal, Hearing Grossly Normal, Normal TMs Nose: Normal Inspection Throat/Mouth: Normal Inspection, Normal Oropharynx Head: Atraumatic, Normocephalic. No: Facial Swelling, Facial Tenderness, Sinus Tenderness Neck: Normal Inspection, Supple Respiratory/Chest: No Respiratory Distress, Lungs Clear, Normal Breath Sounds Cardiovascular: Normal Peripheral Pulses, Regular Rate, Rhythm, No Edema, No Gallop, No JVD, No Murmur GI/Abdominal: Normal Bowel Sounds, Soft, Non-Tender (Female) Exam: Deferred Rectal (Female) Exam: Deferred Back Exam: Normal Inspection Extremities: Normal Inspection, Normal Range of Motion Neurological: Alert, Oriented (times 3), CN II-XII Intact, Normal Reflexes, No Motor/Sensory Deficits Psychiatric: Normal Affect Skin Exam: Warm, Dry, Intact, Normal Color, No Rash Lymphatic: No Adenopathy Course - Vital Signs Text/Narrative:: The patient received two drops of Pred Forte (steroid drops) in [facility]. She states that her eyes feels much better already and she is ready to go home. I agree, she will be discharged. Last Recorded V/S: Last Vital Signs Temp 96.6 F L 08/09/19 17:31 Pulse 90 08/09/19 17:50 Resp 16 08/09/19 17:31 BP 171/101 H 08/09/19 17:31 Pulse Ox 96 08/09/19 17:31 - Orders/Labs/Meds Orders: Active Orders 24 hr Category Date Time Status Visual Acuity [Vision Test] [RC] ASDIRECTED Care 08/09/19 16:56 Active prednisoLONE acetate [Pred Forte 1% Ophth Susp] Med 08/09/19 22:00 Active 2 ml EYEBOTH TID Medication Orders Prednisolone Acetate (Pred Forte 1% Ophth Susp) 2 ml EYEBOTH TID JIL Meds: Medications Generic Name Dose Route Start Last Admin Trade Name Freq PRN Reason Stop Dose Admin Prednisolone Acetate 2 ml 08/09/19 22:00 Pred Forte 1% Ophth Susp EYEBOTH TID JIL Departure - Departure Time of Disposition: 18:43 Disposition: Home, Self-Care 01 Condition: Good Clinical Impression: Conjunctivitis Qualifiers: Conjunctivitis type: unspecified Laterality: bilateral Qualified Code(s): H10.9 - Unspecified conjunctivitis - Discharge Information *PRESCRIPTION DRUG MONITORING PROGRAM REVIEWED*: Yes *COPY OF PRESCRIPTION DRUG MONITORING REPORT IN PATIENT NORA: Yes Instructions: How to Use Eye Drops and Eye Ointments Referrals: PCP,None [Primary Care Provider] - Additional Instructions: Use your new eyedrops as directed. Follow up with an Ophtamologist in two to three days. Return to the ED tomorrow at 10:00AM tomorrow so that I can re- evaluate the eyes. Rest for the next 24 hours. Return to the ED if your condition gets worse or should you have any questions or concerns. The following information is given to patients seen in the emergency department who are being discharged to home. This information is to outline your options for follow-up care. We provide all patients seen in our emergency department with a follow-up referral. The need for follow-up, as well as the timing and circumstances, are variable depending upon the specifics of your emergency department visit. If you don't have a primary care physician on staff, we will provide you with a referral. We always advise you to contact your personal physician following an emergency department visit to inform them of the circumstance of the visit and for follow-up with them and/or the need for any referrals to a consulting specialist. The emergency department will also refer you to a specialist when appropriate. This referral assures that you have the opportunity for follow-up care with a specialist. All of these measure are taken in an effort to provide you with optimal care, which includes your follow-up. Under all circumstances we always encourage you to contact your private physician who remains a resource for coordinating your care. When calling for follow-up care, please make the office aware that this follow-up is from your recent emergency room visit. If for any reason you are refused follow-up, please contact the [facility] Emergency Department at and asked to speak to the emergency department charge nurse. Sepsis Event Note - Evaluation Sepsis Screening Result: No Definite Risk - Focused Exam Vital Signs: Vital Signs Temp Pulse Resp BP Pulse Ox 08/09/19 17:50 90 08/09/19 17:31 96.6 F L 80 16 171/101 H 96 Date Exam was Performed: 08/09/19 Time Exam was Performed: 18:06 - My Orders Last 24 Hours: My Active Orders 08/09/19 22:00 prednisoLONE acetate [Pred Forte 1% Ophth Susp] 2 ml EYEBOTH TID - Assessment/Plan Last 24 Hours: My Active Orders 08/09/19 22:00 prednisoLONE acetate [Pred Forte 1% Ophth Susp] 2 ml EYEBOTH TID
[2019-08-09 19:21] VITALS: BP 134/79; PULSE 74
[2019-08-09] MEDS ORDERED: prednisoLONE Acetate 1% Ophth Susp 5 ML Bottle EYEBOTH SCH (22:00)
== END 2019-08-09 19:15 | disposition home or self-care (01) ==
LOC: MW.ED 16:51
DX: H10.9 Unspecified conjunctivitis (principal)
CPT/HCPCS: 99282; 99283

== ENCOUNTER 2021-12-08 10:43 | Emergency (ER) | payer SELFPAY ==
[2021-12-08] MEDS ORDERED: Sodium Chloride 0.9% 10 ML Syringe FLUSH PRN (11:32)
[2021-12-08] MEDS ORDERED: Sodium Chloride 0.9% 2.5 ML Syringe FLUSH PRN (11:32)
[2021-12-08] MEDS ORDERED: Sodium Chloride 0.9% 1,000 ML IV ONE (11:39)
[2021-12-08] MEDS ORDERED: Morphine 4 MG/ML VIAL IVPUSH ONE (11:40)
[2021-12-08 12:32] LABS: BLOOD UREA NITROGEN,BUN 9 mg/dL (7.0-18.0); CARBON DIOXIDE,CO2 29.8 mmol/L (21.0-32.0); CHLORIDE,CL 99 mmol/L (98-107); GLUCOSE RANDOM 283 mg/dL (74-106); LIPASE 118 U/L (73-393); SODIUM,NA 139 mmol/L (136-145)
[2021-12-08 12:43] LABS: ESTIMATED GFR 71 mL/min (>60)
[2021-12-08 13:12] VITALS: BP 161/98; PULSE 96
[2021-12-08] MEDS ORDERED: Potassium Chloride 20 MEQ Tab.ER PO ONE (13:21)
[2021-12-08] MEDS ORDERED: Famotidine 20 MG Tab PO ONE (14:05)
[2021-12-08] MEDS ORDERED: Alum Hydro/Mag Hydro/Simeth XS 15 ML, Lidocaine 2% 5 ML PO ONE ×2 (14:06)
== END 2021-12-08 14:20 | disposition home or self-care (01) ==
LOC: MW.ED 10:43
DX: R12 Heartburn (principal); E87.6 Hypokalemia; E11.9 Type 2 diabetes mellitus without complications; Z79.899 Other long term (current) drug therapy; Z79.84 Long term (current) use of oral hypoglycemic drugs
CPT/HCPCS: 36415; 80053; 81001; 83690; 85025; 99284; A9270

== ENCOUNTER 2024-02-19 10:07 | Emergency (ER) | payer SELFPAY ==
[2024-02-19 10:37] VITALS: BP 140/74; PULSE 88
== END 2024-02-19 10:36 | disposition home or self-care (01) ==
LOC: MW.ED 10:07
DX: H66.001 Acute suppurative otitis media without spontaneous rupture of ear drum, right ear (principal); I10 Essential (primary) hypertension; E11.9 Type 2 diabetes mellitus without complications; Z79.84 Long term (current) use of oral hypoglycemic drugs; Z79.899 Other long term (current) drug therapy; Z75.8 Other problems related to medical facilities and other health care
CPT/HCPCS: 99282

== ENCOUNTER 2024-03-29 16:18 | Emergency (ER) | payer SELFPAY ==
[2024-03-29 16:42] LABS: APPEARANCE,URINE CLEAR; BILIRUBIN,URINE NEGATIVE (NEGATIVE); COLOR,URINE YELLOW; GLUCOSE,URINE 500 mg/dL (NEGATIVE); KETONES,URINE NEGATIVE (NEGATIVE); LEUKOCYTE ESTERASE,URINE NEGATIVE (NEGATIVE); NITRITE,URINE NEGATIVE (NEGATIVE); OCCULT BLOOD,URINE NEGATIVE (NEGATIVE); PH,URINE 6.5 (5.0-8.0); PROTEIN,URINE NEGATIVE (NEGATIVE); UROBILINOGEN,URINE 0.2 EU/dL (<2.0)
[2024-03-29] MEDS: Sodium Chloride 0.9% 1,000 ML IV SCH (16:51)
[2024-03-29] MEDS: Metoclopramide 10 MG/2 ML SDV IVPUSH ONE (16:51)
[2024-03-29 17:03] LABS: BASOPHILS ABSOLUTE AUTO 0.03 K/uL (0.00-0.20); BASOPHILS PERCENT AUTO 0.3 % (0.0-1.0); HEMATOCRIT 41.7 % (37.0-47.0); HEMOGLOBIN 14.2 g/dL (12.0-16.0); IMMATURE GRAN ABSOLUTE AUTO 0.04 K/uL (0.00-0.05); IMMATURE GRAN PERCENT AUTO 0.4 % (0.0-0.4); LYMPHOCYTES ABSOLUTE AUTO 1.92 K/uL (1.00-4.80); LYMPHOCYTES PERCENT AUTO 20.6 % (24.0-44.0); MEAN CORPUSCULAR HEMOGLOBIN 26.9 pg (28.0-32.0); MEAN CORPUSCULAR HGB CONC 34.1 g/dL (32.0-36.0); MEAN CORPUSCULAR VOLUME 79.1 fL (83.0-99.0); MEAN PLATELET VOLUME 10.8 fL (9.4-12.3); MONOCYTES ABSOLUTE AUTO 0.62 K/uL (0.00-0.80); MONOCYTES PERCENT AUTO 6.6 % (0.0-8.0); NEUTROPHILS ABSOLUTE AUTO 6.72 K/uL (1.80-7.70); NEUTROPHILS PERCENT AUTO 72.1 % (41.0-71.0); PLATELET COUNT,PLT 229 K/uL (150-400); RED BLOOD CELL COUNT 5.27 M/uL (4.10-5.30); WHITE BLOOD CELL COUNT,WBC 9.33 K/uL (3.9-11.3)
[2024-03-29 17:13] LABS: BASE EXCESS VENOUS 3.4 (-2.0-3.0); PH,VENOUS 7.43 (7.31-7.41)
[2024-03-29 17:48] LABS: ALBUMIN 4.2 g/dL (3.4-5.0); BILIRUBIN TOTAL 0.3 mg/dL (0.2-1.0); CALCIUM 9.3 mg/dL (8.5-10.1); CARBON DIOXIDE,CO2 27.8 mmol/L (21.0-32.0); CREATININE 0.9 mg/dL (0.6-1.0); EST CRCL DRUG DOSING (CG) 57.56 mL/min; POTASSIUM,K 3.5 mmol/L (3.5-5.1); PROTEIN TOTAL,TP 8.2 g/dL (6.4-8.2)
[2024-03-29 18:46] VITALS: BP 154/90; PULSE 95
== END 2024-03-29 18:46 | disposition home or self-care (01) ==
LOC: MW.ED 16:18
DX: E11.65 Type 2 diabetes mellitus with hyperglycemia (principal); R53.83 Other fatigue; R00.0 Tachycardia, unspecified; Z79.84 Long term (current) use of oral hypoglycemic drugs; Z79.899 Other long term (current) drug therapy
CPT/HCPCS: 36415; 71046; 80053; 81003; 82803; 82947; 84484; 85025; 87428; 93005; 96361; 96374; 99285; J2765; J7030